=== PATIENT | male | born 1975 | race Caucasian/White ===

== ENCOUNTER 2018-02-22 18:48 | Inpatient (IN) | payer BC ==
[2018-02-22] MEDS ORDERED: Morphine 2 mg/ml ISec IVP STA (20:54)
--- NOTE | 2018-02-22 21:14 | ED PDOC ---
Arrival/HPI - General Chief Complaint: Lower Extremity Problem/Injury Time Seen by Provider: 02/22/18 20:18 Historian: Patient - History of Present Illness Narrative History of Present Illness (Text): 02/22/18 20:35 42 year old male, whose past medical history includes gout, hypertension and diabetes, presents to the emergency department complaining of right knee/right leg discomfort. Patient denies any history of trauma. Patient denies any fever, chills, chest pain, shortness of breath, nausea, vomiting, diarrhea, urinary symptoms, back pain, neck pain, headache, dizziness, or any other complaints. Symptom Onset: Gradual Symptom Course: Unchanged Activities at Onset: Light Context: Home Past Medical History - Provider Review Nursing Documentation Reviewed: Yes - Infectious Disease Hx of Infectious Diseases: None - Cardiac Hx Cardiac Disorders: Yes Hx Hypertension: Yes - Renal Hx Renal Disorder: Yes Other/Comment: CKD Stage III. tumor rt kidney - Endocrine/Metabolic Hx Endocrine Disorders: Yes Hx Diabetes Mellitus Type 1: Yes Other/Comment: Hyperaldosteronemia - Musculoskeletal/Rheumatological Hx Musculoskeletal Disorders: Yes Hx Gout: Yes - Gastrointestinal Hx Gastrointestinal Disorders: Yes Hx Gastroesophageal Reflux: Yes - Psychiatric Hx Substance Use: No - Surgical History Hx Appendectomy: Yes Hx Cardiac Catheterization: Yes - Anesthesia Hx Anesthesia: Yes Hx Anesthesia Reactions: No Hx Malignant Hyperthermia: No Family/Social History - Physician Review Nursing Documentation Reviewed: Yes Family/Social History: No Known Family HX Smoking Status: Never Smoked Hx Alcohol Use: No Hx Substance Use: No Allergies/Home Meds Allergies/Adverse Reactions: Allergies No Known Allergies Allergy (Verified 01/06/16 09:26) Home Medications: Home Meds Medication Instructions Recorded Confirmed Carvedilol [Coreg] 3.125 mg PO DAILY 01/06/16 02/22/18 Insulin Human Regular [Novolin R] 100 unit IJ DAILY 01/06/16 02/22/18 Lisinopril [Zestril] 5 mg PO DAILY 01/06/16 02/22/18 cloNIDine [clonidine HCl] 0.1 mg PO DAILY 01/06/16 02/22/18 Allopurinol [Zyloprim] 100 mg PO BID 02/22/18 02/22/18 Prednisone 50 mg PO DAILY 02/22/18 02/22/18 Review of Systems - Physician Review All systems were reviewed & negative as marked: Yes - Review of Systems Constitutional: absent: Fevers, Other (Chills) Respiratory: absent: SOB Cardiovascular: absent: Chest Pain Gastrointestinal: absent: Diarrhea, Nausea, Vomiting Genitourinary Male: absent: Dysuria, Frequency, Hematuria Musculoskeletal: absent: Back Pain, Neck Pain Neurological: Other (right knee discomfort radiates to right leg). absent: Headache, Dizziness Physical Exam Vital Signs Reviewed: Yes Vital Signs Temp Pulse Resp BP Pulse Ox 02/22/18 20:09 99.0 F 89 18 125/79 99 Temperature: Afebrile Blood Pressure: Normal Pulse: Regular Respiratory Rate: Normal Appearance: Positive for: Well-Appearing, Non-Toxic, Comfortable Pain Distress: None Mental Status: Positive for: Alert and Oriented X 3 - Systems Exam Head: Present: Atraumatic, Normocephalic Pupils: Present: PERRL Extroacular Muscles: Present: EOMI Conjunctiva: Present: Normal Mouth: Present: Moist Mucous Membranes Neck: Present: Normal Range of Motion Respiratory/Chest: Present: Clear to Auscultation, Good Air Exchange. No: Respiratory Distress, Accessory Muscle Use Cardiovascular: Present: Regular Rate and Rhythm, Normal S1, S2. No: Murmurs Abdomen: No: Tenderness, Distention, Peritoneal Signs Back: Present: Normal Inspection Upper Extremity: Present: Normal Inspection. No: Cyanosis, Edema Lower Extremity: Present: NORMAL PULSES, Normal ROM, Tenderness (Tender to palpation of the right knee with some pain o n flexion and extension), Erythema (and warmth), Neurovascularly Intact. No: Edema, Pauly's Sign, Swelling Neurological: Present: GCS=15, CN II-XII Intact, Speech Normal, Motor Func Grossly Intact, Normal Sensory Function Skin: Present: Warm, Dry, Normal Color. No: Rashes Psychiatric: Present: Alert, Oriented x 3, Normal Insight, Normal Concentration Medical Decision Making ED Course and Treatment: 02/22/18 20:35 Impression: 42 year old male presents complaining of right knee/leg pain.Differential DDX. Cellulitis/Gout/Septic arthritis/DVT Plan: -- Labs -- Morphine, Solu-medrol -- Duplex Lower Extrem Vein US -- EKG -- Reassess and disposition Progress Notes: 02/22/18 21:33 Duplex Lower Extrem Vein US Impression: Negative. 02/22/18 23:[address] Lino who is aware and agrees with the plan. Accepts patient into her service. / on consult. 02/23/18 00:59 EKG shows NSR at 87 BPM with PACs, LVH, inferolateral ST/T wave changes. Interpreted by me. - Lab Interpretations I have reviewed the lab results: Yes - RAD Interpretation Radiology Orders: 02/22/18 20:45 DUPLEX LOWER EXTRM VEIN RIGHT [US] Stat - Medication Orders Current Medication Orders: Discontinued Medications Methylprednisolone (Solu-Medrol) 125 mg IVP ONCE ONE Stop: 02/22/18 20:55 Morphine Sulfate (Morphine) 2 mg IVP STAT STA Stop: 02/22/18 20:55 - Scribe Statement The provider has reviewed the documentation as recorded by the Dalton Iraheta Provider Scribe Attestation: All medical record entries made by the Scribe were at my direction and personally dictated by me. I have reviewed the chart and agree that the record accurately reflects my personal performance of the history, physical exam, medical decision making, and the department course for this patient. I have also personally directed, reviewed, and agree with the discharge instructions and disposition. Disposition/Present on Arrival - Present on Arrival Any Indicators Present on Arrival: No History of DVT/PE: No History of Uncontrolled Diabetes: No Urinary Catheter: No History of Decub. Ulcer: No History Surgical Site Infection Following: None - Disposition Have Diagnosis and Disposition been Completed?: Yes Diagnosis: Gout, Cellulitis, Hypokalemia, Chronic kidney disease (CKD), Diabetes mellitus Disposition: HOSPITALIZED Disposition Time: 23:35 Patient Plan: Observation Patient Problems: Current Active Problems Problem Status Onset Cellulitis Acute Chronic kidney disease (CKD) Acute Diabetes mellitus Acute Gout Acute Hypokalemia Acute Condition: STABLE
[2018-02-22 22:17] LABS: MEAN CELL VOLUME 73.5 fl (80.0-105.0); MEAN CORPUSCULAR HEMOGLOBIN 23.9 pg (25.0-35.0); MEAN CORPUSCULAR HGB CONC 32.5 g/dl (31.0-37.0); MEAN PLATELET VOLUME 11.3 fl (7.0-11.0); RBC 4.19 10^6/uL (3.5-6.1); WHITE BLOOD COUNT 14.9 10^3/uL (4.5-11.0)
[2018-02-22 22:39] LABS: ALB/GLOB RATIO 1.1 (1.1-1.8); ALBUMIN 4.1 g/dL (3.0-4.8); CALCIUM 9.1 mg/dL (8.4-10.5); URIC ACID 10.9 mg/dL (3.5-8.5)
[2018-02-22] MEDS ORDERED: Potassium Chloride 20 mEq ER Tab PO STA ×2 (22:44→23:42)
[2018-02-22] MEDS ORDERED: cefTRIAXone 1 gm 1 GM/100 ML BAG IV STA (22:54)
[2018-02-23] MEDS ORDERED: Morphine 2 mg/ml ISec IVP ONE (01:54)
[2018-02-23 03:40] VITALS: BMI 34.7
[2018-02-23] MEDS ORDERED: Insulin Reg-LOW-Coverage SC SCH (07:30)
[2018-02-23 08:01] VITALS: RESP 20
[2018-02-23] MEDS ORDERED: MethylPREDNISolone Depo 40 mg/ml Inj IM ONE (08:35)
[2018-02-23] MEDS ORDERED: Bupivacaine 0.5% Inj(30mL) IJ ONE (08:35)
--- NOTE | 2018-02-23 09:29 | CARD ---
APPROVED REPORT Date of service: 02/23/2018 EKG Measurement Heart [id number] <Conclusion> Sinus rhythm with premature atrial complexes with aberrant conduction Left ventricular hypertrophy ST & T wave abnormality, consider lateral ischemia Prolonged QT Abnormal ECG
--- NOTE | 2018-02-23 09:33 | RAD ---
Date of service: 02/23/2018 PROCEDURE: Right Knee and patella radiographs. HISTORY: pain COMPARISON: None. FINDINGS: BONES: Normal. No fracture. JOINTS: Normal. No osteoarthritis. JOINT EFFUSION: None. OTHER FINDINGS: None. IMPRESSION: Normal radiographs of the right knee.
[2018-02-23] MEDS: Pantoprazole 40 mg EC Tab PO SCH (09:35)
[2018-02-23] MEDS: MethylPREDNISolone 40 mg Vial IVP SCH ×2 (09:36→21:30)
--- NOTE | 2018-02-23 12:09 | CT ---
Date of service: 02/23/2018 PROCEDURE: CT of the right knee without contrast HISTORY: right knee r/o septic joint COMPARISON: TECHNIQUE: Radiation dose: Total exam DLP = 712.16 mGy-cm. This CT exam was performed using one or more of the following dose reduction techniques: Automated exposure control, adjustment of the mA and/or kV according to patient size, and/or use of iterative reconstruction technique. FINDINGS: Small amount of air is seen within the knee joint. Presumably this is due to recent aspiration of the knee joint. If there has been no intervention then a gas-forming infection would be the likely explanation. There is a small joint effusion. There is no evidence of bony destruction to suggest osteomyelitis. IMPRESSION: Small amount of air within the knee joint presumably due to recent aspiration. See comments. No evidence of bony destruction to suggest osteomyelitis
[2018-02-23] MEDS ORDERED: Insulin Lispro (HUMAlog) HIGH Coverage SC SCH ×2 (12:21→16:30)
[2018-02-23] MEDS: Insulin Lispro (HUMAlog) HIGH Coverage SC SCH ×3 (12:32→21:29)
--- NOTE | 2018-02-23 12:55 | RAD ---
Date of service: 02/23/2018 PROCEDURE: Bilateral knees standing AP HISTORY: knee pain COMPARISON: TECHNIQUE: Single AP view FINDINGS: The study is unremarkable. There is no significant joint space narrowing. IMPRESSION: Negative study
--- NOTE | 2018-02-23 13:04 | CON ---
DATE: 02/23/2018 HISTORY OF PRESENT ILLNESS: The patient is a 42-year-old male with right knee pain for several weeks. 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 The right knee x-ray shows mild sclerosis of the medial joint line on nonstanding x-rays with a mild effusion palpable but not enough to aspirate because it might become too painful, so with this evidence of pain and nonobstructive range of motion, in other words he has no locking. Uric acid is a little high at 10.9 with a history of gouty arthritis. In the past, we injected the right knee with Depo-Medrol and Marcaine to the lateral patellar portal and hopefully he will get some relief with the inflammatory arthritis from gout. I could see him in the office if need be and before he goes home we will get standing x-rays to how bad the right knee arthritis is when he puts body weight on it. FINAL DIAGNOSES: 1. Mild osteoarthritis, right knee. 2. Inflammatory arthritis from gout, no evidence of infection. Roberto Rojas DO
[2018-02-23] MEDS: HYDROmorphone 0.5 mg/0.5 ml ISec IVP PRN ×2 (14:55→21:30)
--- NOTE | 2018-02-23 15:40 | CON ---
DATE: 02/23/2018 LOCATION: The patient is seen in room 560, bed 2. CHIEF COMPLAINT: Right knee pain x1 week duration. HISTORY OF PRESENT ILLNESS: This is a 42-year-old male with hypertension, diabetes, GERD, history of kidney disease and history of gout who has had appendectomy and cholecystectomy in the past, who is admitted now with right knee pain. He states he feels that he is having a gout attack. He states he has had them in the past. He feels just like that. He had no fevers, low-grade, perhaps at most. No chest pain. No abdominal pain, diarrhea or constipation. No dysuria or frequency. No cough. REVIEW OF SYSTEMS: A 14-point review of systems is performed. PAST MEDICAL HISTORY: Significant for gout, hypertension, kidney disease, diabetes, history of adrenal mass and coronary artery disease. PAST SURGICAL HISTORY: Significant for appendectomy and cholecystectomy. SOCIAL HISTORY: The patient is an ex-smoker. He also has obesity with BMI of 34. He served in the [employer] and was in [place] and [place] many years ago. No recent travel. ALLERGIES: THE PATIENT HAS NO KNOWN ALLERGIES. MEDICATIONS AT HOME: Include prednisone, allopurinol, Klonopin, Protonix, Zestril, insulin and carvedilol. PHYSICAL EXAMINATION: VITAL SIGNS: The patient is in bed with a temperature of 99, respiratory rate of 18, heart rate of 88 and blood pressure is 140/90. HEENT: Unremarkable. NECK: Supple. LUNGS: Have decreased breath sounds. ABDOMEN: Soft and nontender. No rebound. No guarding. EXTREMITIES: Right knee has full range of motion, it is not tender to touch and there is no erythema, no evidence of infection, it looks essentially unremarkable. LABORATORY EXAMINATION: Reveals a white count of 14,900 and hemoglobin of 10. Creatinine is 3.0, and in 2016, he had a creatinine of 1.4. Uric acid is 10.9. EKG is noted to be 512 and ER chart per Dr. Lane Mcdermott is reviewed. The patient was given a dose of ceftriaxone in the emergency room and gout was treated. ASSESSMENT AND PLAN: This is a 42-year-old male with diabetes, hypertension, kidney disease, presenting with right knee pain, probable gout, I doubt septic joint. We will order a CT of the right knee. We will start ceftaroline. The patient has acute kidney injury with creatinine has changed from 1.4 to [address]. [address] of the knee and Orthopedics is on the case. We will check on the synovial fluid, cell count, Gram stain and cultures and we will start ceftaroline, empirically pending panculture results. workup results and crystal evaluation. I doubt infectious etiology. We will empirically start pending initial workup results for a septic joint: We will follow closely with you. Mono Peterson MD
[2018-02-23 17:08] LABS: URINE APPEARANCE CLEAR (CLEAR); URINE BILIRUBIN NEGATIVE (NEGATIVE); URINE BLOOD SMALL (NEGATIVE); URINE COLOR YELLOW (YELLOW); URINE GLUCOSE (UA) >=1000 mg/dL (NEGATIVE); URINE LEUKOCYTE ESTERASE NEGATIVE Leu/uL (NEGATIVE); URINE PROTEIN 100 mg/dL (<30 mg/dL); URINE UROBILINOGEN 0.2 E.U./dL (<1 E.U./dL)
[2018-02-23 17:46] LABS: URINE BACTERIA FEW (NEG); URINE EPITHELIAL CELLS 0 - 2 /hpf (0-5); URINE WBC 0 - 2 /hpf (0-6)
[2018-02-23] MEDS: Insulin Detemir 100 units/ml Vial (Levemir) SC SCH (21:29)
[2018-02-24] MEDS ORDERED: Potassium Chloride 20 mEq ER Tab PO ONE (06:33)
[2018-02-24] MEDS ORDERED: Insulin Lispro 1 UNITS/0.01 ML SC SCH (07:30)
[2018-02-24] MEDS: Insulin Lispro (HUMAlog) HIGH Coverage SC SCH ×4 (08:09→22:12)
[2018-02-24] MEDS: Insulin Lispro 1 UNITS/0.01 ML SC SCH ×3 (08:14→17:41)
--- NOTE | 2018-02-24 09:24 | HP ---
DATE OF EXAM: 02/23/2018 The patient was seen and examined at bedside on 02/23/2018. CHIEF COMPLAINT: Lower extremity pain. HISTORY OF PRESENT ILLNESS: Mr. Alejo Combs is a 42 years old male with past medical history of gouty arthritis, hypertension, diabetes mellitus, came to the emergency department complaining of right leg discomfort. The patient denies any history of trauma, any fever, chill, chest pain, shortness of breath, nausea, vomiting, diarrhea, hematuria, hematochezia. No neck pain. No back pain. No dizziness. No headache. No GERD or dyspepsia. The patient was admitted, knee x-ray done, reviewed by me. Lower extremity CT done, reviewed by me. Consult called with Dr. Peterson, Infectious Disease, to make sure there is no cellulitis and Dr. Rojas. He injected intraarticular injection. CAT scan showed a small amount of air within the knee that presumably due to the recent aspiration. No evidence of bony destruction to suggest osteomyelitis. PAST MEDICAL HISTORY: Hypertension, CKD stage 3, tumor right kidney, diabetes mellitus type 1, hypercholesterolemia, gouty arthritis, gastroesophageal reflux disease, appendectomy, cardiac catheterization. FAMILY HISTORY: Father and mother, noncontributory. HABITS: Never smoke. No drug. No ethanol. ALLERGIES: PATIENT IS NOT ALLERGIC WITH ANY MEDICATIONS. HOME MEDICATIONS: Carvedilol, insulin, Zestril, Coumadin, allopurinol, prednisone. REVIEW OF SYSTEMS: The patient was seen and examined at bedside, looking comfortable. No nausea, vomiting, diarrhea. No hematuria or hematochezia. No headache. No dizziness. Pain in the knee, especially right knee discomfort radiating to the right leg. The patient even touches her knees. PHYSICAL EXAMINATION: VITAL SIGNS: Temperature 99, pulse 59, respiratory rate 18, blood pressure 124/79, pulse oximetry 99%. HEENT: Head; normocephalic, atraumatic. Eyes; PERRLA. Extraocular muscles intact. Conjunctivae clear. Nose patent. NECK: Supple. No carotid bruit, JVD or thyromegaly. CHEST: Bilaterally symmetrical. HEART: S1 and S2 positive. LUNGS: Clear to auscultation. ABDOMEN: Soft. Nontender. No organomegaly. No distended. EXTREMITIES: Upper extremity, no edema and no cyanosis. Lower extremity, normal perfusion, normal range of motion. Tenderness to palpation of the right knee with some pain on flexion and extension, some warmth of the right knee. NEUROLOGIC: The patient is awake and alert. Follows simple commands. LABORATORY DATA: White blood cells 14.9, hemoglobin 10, hematocrit 30.8, platelets 183,000. Glucose 225, sodium 138, original potassium was 2.9, but after replacement is 3.2. Urine insufficiency. We will repeat the labs. Hyperglycemia, but not getting better. Uric acid is high. Hyperglycemia. C-reactive protein is high at 20.2. Prolactin is low as 0.05. ASSESSMENT AND PLAN: Mr. Alejo Combs is a 42 years old male with anemia, renal insufficiency, hyperglycemia, gouty arthritis, proteinuria, hematuria, CAT scan of the lower extremity, which showed a small amount of air within the knee joint, presumably due to the recent aspiration treatment. He has right leg intractable pain. Dr. Rojas, Orthopedic, on the case. The patient has been for several weeks and he is on his knees quite a bit. The right knee shows mild sclerosis of the medial joint and x-rays revealed mild osteoarthritis. . No evidence of the nonobstructive range of the motion. There was no clicking. Uric acid is little bit high, patient has gouty arthritis. Dr. Rojas injected the right knee with Depo-Medrol and Marcaine with little patellar motion and hopefully . I could see him in the office if . Gastrointestinal and deep vein thrombosis prophylaxes. Repeat labs. Discussion done with the patient and the patient's nurse. We will follow up. Jyothi Lino MD
[2018-02-24] MEDS: MethylPREDNISolone 40 mg Vial IVP SCH ×2 (10:05→22:13)
[2018-02-24] MEDS: Pantoprazole 40 mg EC Tab PO SCH (10:06)
--- NOTE | 2018-02-24 14:21 | US ---
PROCEDURE: Right lower extremity venous US HISTORY: Leg pain and swelling. Evaluate for DVT. PHYSICIAN(S): Yordan Arango M.D. TECHNIQUE: Duplex sonography and color-flow Doppler with graded compression were used to evaluate the deep venous system of the right lower extremity. FINDINGS: The visualized deep venous system of the right lower extremity is sonographically normal and compressible. Normal waveforms and augmentation are seen. There is no sonographic evidence for deep venous thrombosis in the visualized segments of the right lower extremity. IMPRESSION: 1. No sonographic evidence for deep venous thrombosis in the visualized segments of the right lower extremity.
--- NOTE | 2018-02-24 17:50 | CP.PCM.PN ---
Subjective - Date & Time of Evaluation Date of Evaluation: 02/24/18 Time of Evaluation: 10:10 - Subjective Subjective: Right knee is feeling much better, no fevers, not in distress. Objective - Vital Signs/Intake and Output Vital Signs (last 24 hours): Temp Pulse Resp BP Pulse Ox 98.6 F 75 20 158/103 H 99 02/24/18 14:00 02/24/18 14:00 02/24/18 14:00 02/24/18 14:00 02/24/18 14:00 Intake and Output: 02/24/18 02/24/18 06:59 18:59 Intake Total 180 Output Total 400 Balance -220 - Medications Medications: Current Medications Acetaminophen (Tylenol 325mg Tab) 650 mg PO Q4H PRN PRN Reason: pain fever Allopurinol (Zyloprim) 100 mg PO BID [facility] Last Admin: 02/24/18 11:59 Dose: 100 mg Carvedilol (Coreg) 3.125 mg PO DAILY [facility] Last Admin: 02/24/18 10:06 Dose: 3.125 mg Clonidine HCl (Catapres) 0.2 mg PO Q12H [facility] Last Admin: 02/24/18 10:06 Dose: 0.2 mg Hydromorphone HCl (Dilaudid) 0.5 mg IVP Q4H PRN PRN Reason: Pain, Mild (1-3) Last Admin: 02/23/18 21:30 Dose: 0.5 mg Ceftaroline Fosamil 300 mg/ (Sodium Chloride) 50 mls @ 50 mls/hr IVPB Q12H [facility]; Protocol Stop: 03/02/18 10:31 Last Admin: 02/24/18 10:05 Dose: 50 mls/hr Insulin Detemir (Levemir) 45 unit SC HS [facility] Last Admin: 02/23/18 21:29 Dose: 45 units Insulin Human Lispro (Humalog High) 0 units SC ACHS [facility]; Protocol Last Admin: 02/24/18 12:00 Dose: Not Given Insulin Human Lispro (Humalog) 15 units SC ACTID [facility] Last Admin: 02/24/18 12:00 Dose: Not Given Lisinopril (Zestril) 5 mg PO DAILY [facility] Last Admin: 02/24/18 10:06 Dose: 5 mg Methylprednisolone (Solu-Medrol) 40 mg IVP Q12 [facility] Last Admin: 02/24/18 10:05 Dose: 40 mg Pantoprazole Sodium (Protonix Ec Tab) 40 mg PO DAILY [facility] Last Admin: 02/24/18 10:06 Dose: 40 mg - Labs Labs: 02/22/18 21:45 02/23/18 19:25 - Constitutional Appears: No Acute Distress, Chronically Ill - Head Exam Head Exam: NORMAL INSPECTION - Respiratory Exam Respiratory Exam: absent: Rales - Cardiovascular Exam Cardiovascular Exam: +S1, +S2 - GI/Abdominal Exam GI & Abdominal Exam: Soft. absent: Tenderness - Extremities Exam Additional comments: right knee with decreased swelling, no tenderness Assessment and Plan - Assessment and Plan (Free Text) Plan: Assessment Arthritis of right knee with effusion, consider gouty arthritis, less likely septic arthritis since it has improved dramatically despite not being drained; blood cx are also negative DM HTN chronic renal failure Plan continue Teflaro pending final culture results; Ortho has seen the patient but opted not to drain the knee since the effusion is too little to drain as per Ortho - patient has improved despite no arthrocentesis making septic arthritis unlikely - patient now has full range of motion of right knee will monitor clinically
[2018-02-24] MEDS: Insulin Detemir 100 units/ml Vial (Levemir) SC SCH (22:12)
[2018-02-25 07:12] LABS: HEMOGLOBIN 11.4 g/dL (14.0-18.0); MEAN CORPUSCULAR HEMOGLOBIN 23.2 pg (25.0-35.0); MEAN CORPUSCULAR HGB CONC 32.2 g/dl (31.0-37.0); PLATELET COUNT 188 10^3/uL (120.0-450.0); RBC 4.92 10^6/uL (3.5-6.1); RED CELL DISTRIBUTION WIDTH 18.6 % (11.5-14.5); WHITE BLOOD COUNT 15.8 10^3/uL (4.5-11.0)
[2018-02-25 07:14] LABS: ALBUMIN 4.2 g/dL (3.0-4.8); CALCIUM 9.4 mg/dL (8.4-10.5)
[2018-02-25 07:50] VITALS: BP 190/112; PULSE 81; TEMP 98.6; O2SAT 98
[2018-02-25] MEDS: Insulin Lispro (HUMAlog) HIGH Coverage SC SCH ×2 (08:39→12:30)
[2018-02-25] MEDS: Insulin Lispro 1 UNITS/0.01 ML SC SCH ×2 (08:39→12:30)
--- NOTE | 2018-02-25 10:02 | PN ---
DATE: 02/24/2018 SUBJECTIVE: The patient was seen and examined at bedside on 02/24/2018, still having right knee pain, but much better. No fever. No chills, nausea, vomiting, or diarrhea. No hematuria or hematochezia. No headache. No dizziness. No chest pain or palpitations. PHYSICAL EXAMINATION: VITAL SIGNS: Temperature 99, pulse 75, respirations 20, and blood pressure 158/80. HEENT: Head is normocephalic and atraumatic. Eyes; PERRLA. Extraocular muscles intact. Conjunctivae clear. Nose patent. NECK: Supple. No carotid bruits. No JVD or thyromegaly. CHEST: Bilaterally symmetrical. HEART: S1 and S2 positive. LUNGS: Clear to auscultation. ABDOMEN: Soft. Bowel sounds present. No organomegaly. EXTREMITIES: No edema. No cyanosis. NEUROLOGIC: The patient is awake and alert. Moving all four extremities. No focal deficits. MEDICATIONS: Allopurinol, carvedilol, hydromorphone, insulin, lisinopril, methylprednisolone, Protonix. LABORATORY DATA: White blood cells 14.9, hemoglobin 10, hematocrit 30.8, platelets 183. Potassium 3.2. ASSESSMENT AND PLAN: Mr. Alejo Combs is a 42-year-old male with leukocytosis, anemia, thrombocytopenia. Gastrointestinal and deep vein thrombosis prophylaxes. The patient has a history of right knee with effusion, consider gouty arthritis less likely septic arthritis since it has been improved dramatically despite being drained. Blood cultures are also negative. Diabetes mellitus, hypertension, recommendation depending on his final culture. Orthopedic is on the case. Repeat labs. We will follow. Jyothi Lino MD
[2018-02-25] MEDS: Pantoprazole 40 mg EC Tab PO SCH (12:20)
[2018-02-25] MEDS: MethylPREDNISolone 40 mg Vial IVP SCH (12:28)
--- NOTE | 2018-02-25 14:12 | CP.PCM.PN ---
Subjective - Date & Time of Evaluation Date of Evaluation: 02/25/18 Time of Evaluation: 10:30 - Subjective Subjective: Feeling much better, can walk and stand with minimal pain in the right knee, no fevers. Objective - Vital Signs/Intake and Output Vital Signs (last 24 hours): Temp Pulse Resp BP Pulse Ox 98.6 F 75 20 158/103 H 99 02/24/18 14:00 02/24/18 14:00 02/24/18 14:00 02/24/18 14:00 02/24/18 14:00 Intake and Output: 02/24/18 02/24/18 06:59 18:59 Intake Total 180 Output Total 400 Balance -220 - Medications Medications: Current Medications Acetaminophen (Tylenol 325mg Tab) 650 mg PO Q4H PRN PRN Reason: pain fever Allopurinol (Zyloprim) 100 mg PO BID [facility] Last Admin: 02/24/18 11:59 Dose: 100 mg Carvedilol (Coreg) 3.125 mg PO DAILY [facility] Last Admin: 02/24/18 10:06 Dose: 3.125 mg Clonidine HCl (Catapres) 0.2 mg PO Q12H [facility] Last Admin: 02/24/18 10:06 Dose: 0.2 mg Hydromorphone HCl (Dilaudid) 0.5 mg IVP Q4H PRN PRN Reason: Pain, Mild (1-3) Last Admin: 02/23/18 21:30 Dose: 0.5 mg Ceftaroline Fosamil 300 mg/ (Sodium Chloride) 50 mls @ 50 mls/hr IVPB Q12H [facility]; Protocol Stop: 03/02/18 10:31 Last Admin: 02/24/18 10:05 Dose: 50 mls/hr Insulin Detemir (Levemir) 45 unit SC HS [facility] Last Admin: 02/23/18 21:29 Dose: 45 units Insulin Human Lispro (Humalog High) 0 units SC ACHS [facility]; Protocol Last Admin: 02/24/18 12:00 Dose: Not Given Insulin Human Lispro (Humalog) 15 units SC ACTID [facility] Last Admin: 02/24/18 17:41 Dose: Not Given Lisinopril (Zestril) 5 mg PO DAILY [facility] Last Admin: 02/24/18 10:06 Dose: 5 mg Methylprednisolone (Solu-Medrol) 40 mg IVP Q12 [facility] Last Admin: 02/24/18 10:05 Dose: 40 mg Pantoprazole Sodium (Protonix Ec Tab) 40 mg PO DAILY [facility] Last Admin: 02/24/18 10:06 Dose: 40 mg - Labs Labs: 02/22/18 21:45 02/23/18 19:25 - Constitutional Appears: Non-toxic, No Acute Distress - Head Exam Head Exam: NORMAL INSPECTION - Respiratory Exam Respiratory Exam: absent: Rales - Cardiovascular Exam Cardiovascular Exam: +S1, +S2 - GI/Abdominal Exam GI & Abdominal Exam: Soft. absent: Tenderness - Extremities Exam Additional comments: no right knee swelling, no tenderness or erythema of the right knee, no fluctuance or fluid wave noted Assessment and Plan - Assessment and Plan (Free Text) Plan: Assessment Arthritis of right knee with effusion, consider gouty arthritis, less likely sep tic arthritis since it has improved dramatically despite not being drained; blood cx are also negative DM HTN chronic renal failure Plan on Teflaro - blood cx are negative; Ortho has seen the patient but opted not to drain the knee since the effusion is too little to drain as per Ortho - patient has improved despite no arthrocentesis making septic arthritis unlikely - pat ient now has full range of motion of right knee discussed with Dr. Petit - will change TEflaro to PO Doxycycline and Vantin for another 5 days with outpatient follow up with PMD - discussed this with patient and he understands and needs to watch out for increased swelling and pain in the knee, as well as fevers and if any of these happen he should get medical attention
== END 2018-02-25 14:56 | disposition home or self-care (01) | DRG 554 ==
LOC: ED 18:48 → ERH 23:28 → 5RNO 02-23 01:24 → OBSVTOIN 02-23 12:00
PROVIDERS: ADMIT Internal Medicine; ATTEND Internal Medicine
DX: M10.061 Idiopathic gout, right knee (principal); N17.9 Acute kidney failure, unspecified; M17.11 Unilateral primary osteoarthritis, right knee; M25.461 Effusion, right knee; I12.9 Hypertensive chronic kidney disease with stage 1 through stage 4 chronic kidney disease, or unspecified chronic kidney disease; E10.22 Type 1 diabetes mellitus with diabetic chronic kidney disease; N18.3 Chronic kidney disease, stage 3 (moderate); K21.9 Gastro-esophageal reflux disease without esophagitis; E87.6 Hypokalemia; E10.65 Type 1 diabetes mellitus with hyperglycemia; I25.10 Atherosclerotic heart disease of native coronary artery without angina pectoris; D69.6 Thrombocytopenia, unspecified; D64.9 Anemia, unspecified; E78.00 Pure hypercholesterolemia, unspecified; E66.9 Obesity, unspecified; Z68.34 Body mass index [BMI] 34.0-34.9, adult; Z87.891 Personal history of nicotine dependence